=== PATIENT | female | born 1945 | race Caucasian/White ===

== ENCOUNTER → 2017-03-26 | Outpatient (CLI) | payer OTHER | LOC: FIMAGING 10:11 | PROVIDERS: ATTEND Physician Assistant | DX: R11.2 Nausea with vomiting, unspecified (principal); R53.83 Other fatigue; I70.0 Atherosclerosis of aorta ==

== ENCOUNTER → 2017-08-21 | Outpatient (CLI) | payer OTHER | LOC: FIMAGING 13:02 | PROVIDERS: ATTEND Family Medicine Sports Medicine | DX: Z12.31 Encounter for screening mammogram for malignant neoplasm of breast (principal) | CPT/HCPCS: G0202 ==

== ENCOUNTER → 2018-09-01 | Outpatient (CLI) | payer OTHER | LOC: FIMAGING 12:50 | PROVIDERS: ATTEND Family Medicine Sports Medicine | DX: Z12.31 Encounter for screening mammogram for malignant neoplasm of breast (principal) ==

== ENCOUNTER → 2018-09-29 | Outpatient (CLI) | payer OTHER | LOC: FIMAGING 10:21 | PROVIDERS: ATTEND Family Medicine Sports Medicine | DX: N63.11 Unspecified lump in the right breast, upper outer quadrant (principal); Z98.82 Breast implant status ==

== ENCOUNTER → 2019-02-02 | Outpatient (CLI) | payer OTHER | LOC: EMCIMAGING 08:37 | PROVIDERS: ATTEND Family Medicine Sports Medicine | DX: Z03.89 Encounter for observation for other suspected diseases and conditions ruled out (principal); Z98.82 Breast implant status | CPT/HCPCS: 77065-PN ==